=== PATIENT | female | born 1975 | race Caucasian/White ===

== ENCOUNTER 2018-08-12 16:33 | Emergency (ER) | payer OTHER ==
--- NOTE | 2018-08-12 18:04 | EDPHY ---
H & P Stated Complaint: itchy /irritated r eye has been seen by pc and opthalmologist Time Seen by Provider: 08/12/18 18:02 HPI/ROS: HPI: This is a 43-year-old female who presents with Chief Complaint: itchy /irritated r eye has been seen by pc and opthalmologist Location: Behind right eye Quality: Pain Duration: 2 days Signs and Symptoms: no fever, no nausea, no vomiting, no photophobia, no noise sensitivity, no neck stiffness, no ear pain, no tinnitus, no nasal congestion, no sinus pressure, no weakness, no radiation, no aura Timing: Acute Severity: Moderate Context: Patient presents with complaints of right eye posterior discomfort and accompanied by nausea. Patient was seen by the [facility] 2 days ago and started on Fioricet without improvement in her symptoms. 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 Denies any prior history of migraine headaches but does report that she has been having more headaches over the last several months than usual. Modifying Factors: Fioricet, no improved Comment: ROS: A comprehensive 10 system review of systems is otherwise negative aside from elements mentioned in the history of present illness. MEDICAL/SURGICAL/SOCIAL HISTORY: Medical history: Generally healthy. Does not take any regular medications. Surgical history: Denies Social history: Family history noncontributory. General appearance: Extremely well-appearing female, awake and alert, cooperative, Visual Acuity: noted from Nurse's notes. HEENT: Atraumatic and normocephalic, PERRL, EOMI. Nares patent; no rhinorrhea; no nasal mucosal edema. Tympanic membranes clear. Oropharynx clear, no exudate and moist pink mucosa. Airway patent. No lymphadenopathy. No meningismus. Cardiovascular: Normal S1/S2, regular rate, regular rhythm, without murmur rub or gallop. PULMONARY/CHEST: Symmetrical and nontender. Clear to auscultation bilaterally. Good air movement. No accessory muscle usage. ABDOMEN: Soft, nondistended, nontender, no rebound, no guarding, no peritoneal signs, no masses or organomegaly. No CVAT. EXTREMITIES: 2/2 pulses, strength 5/5, no deformities, no clubbing, no cyanosis or edema. NEUROLOGICAL: no focal neuro deficits. GCS 15. Normal cerebellar testing. SKIN: Warm and dry, no erythema. no rash. Good capillary refill. Source: Patient Exam Limitations: No limitations - Personal History LMP (Females 10-55): 15-21 Days Ago Current Tetanus Diphtheria and Acellular Pertussis (TDAP): Yes - Medical/Surgical History Hx Asthma: No Hx Chronic Respiratory Disease: No Hx Diabetes: No Hx Cardiac Disease: No Hx Renal Disease: No Hx Cirrhosis: No Hx Alcoholism: No Hx HIV/AIDS: No Hx Splenectomy or Spleen Trauma: No Other PMH: denies - Social History Smoking Status: Never smoked Constitutional: Initial Vital Signs Temperature (C) 36.8 C 08/12/18 16:44 Heart Rate 56 L 08/12/18 16:44 Respiratory Rate 17 08/12/18 16:44 Blood Pressure 97/72 L 08/12/18 16:44 O2 Sat (%) 99 08/12/18 16:44 O2 Delivery Mode Room Air Allergies/Adverse Reactions: No Known Allergies Allergy (Verified 08/12/18 16:43) Home Medications: Medication Instructions Recorded Promethazine HCl [Phenergan 25mg 25 mg PO Q6 PRN #12 tab 08/12/18 (*)] SUMAtriptan [Imitrex 50 MG (*)] 50 mg PO Q2H #12 tab 08/12/18 Medical Decision Making - Diagnostics Imaging Results: Imaging Impressions Head CT 08/12/18 18:19 Impression: Normal noncontrast CT of the brain. Results called to. Katerina Bentley PA-C, 6:30 PM at the time of the interpretation. ED Course/Re-evaluation: Vital signs reviewed and stable upon arrival. No systemic signs. Called by radiologist who advised that head CT scan shows no acute intracranial process, no sinusitis. This appears to be an ocular migraine and will be treated with IV fluids 1 L normal saline, IV Decadron, IV Toradol, IV Reglan, IV Benadryl 1925: Reassessed patient who reports 50% relief of symptoms. Patient will be given a prescription for Imitrex and promethazine with follow-up at the clinic. This patient was seen under the supervision of my secondary supervising physician. I evaluated care for this patient independently. Discussed this patient with Dr. Gonzalez. Differential Diagnosis: Headache including but not limited to subarachnoid hemorrhage, migraine headache , tension headache and infectious causes such as meningitis, pharyngitis and sinusitis. - Data Points Medications Given: Discontinued Medications Dexamethasone (Decadron Injection) 10 mg IVP EDNOW ONE Stop: 08/12/18 18:19 Last Admin: 08/12/18 18:36 Dose: 10 mg Diphenhydramine HCl (Benadryl Injection) 25 mg IVP EDNOW ONE Stop: 08/12/18 18:19 Last Admin: 08/12/18 18:39 Dose: 25 mg Sodium Chloride (Ns) 1,000 mls @ 0 mls/hr IV ONCE ONE; Wide Open PRN Reason: Protocol Stop: 08/12/18 18:19 Last Admin: 08/12/18 18:35 Dose: 1,000 mls Ketorolac Tromethamine (Toradol) 30 mg IVP EDNOW ONE Stop: 08/12/18 18:19 Last Admin: 08/12/18 18:38 Dose: 30 mg Metoclopramide HCl (Reglan Injection) 10 mg IVP EDNOW ONE Stop: 08/12/18 18:19 Last Admin: 08/12/18 18:37 Dose: 10 mg Departure - Departure Disposition: Home, Routine, Self-Care Clinical Impression: Ocular migraine Condition: Good Instructions: Ocular Migraine (ED) Additional Instructions: Consume a minimum of 8-10 glasses of water or electrolyte fluid replacement drinks that include Gatorade, Powerade, Pedialyte. Rest as much as possible until you are feeling better. Avoid moderate physical activity and sunlight until headache resolved. Eat a bland diet for the next 48 hours and then slowly advance as tolerated. Take promethazine 1 tab every 6 hours as needed for nausea, vomiting. Take Imitrex every 2 hr as needed for headache. Return to the ER immediately if you have progressive headaches, neurologic deficits, gait abnormality, visual disturbance, slurred speech, or any other symptom that concerns you. Referrals: [facility],. [Clinic] - 5-7 days, if not improved Stand Alone Forms: Work Excuse Prescriptions: Promethazine HCl [Phenergan 25mg (*)] 25 mg PO Q6 PRN #12 tab PRN Reason: Nausea/Vomiting, Use 1st SUMAtriptan [Imitrex 50 MG (*)] 50 mg PO Q2H #12 tab
[2018-08-12] MEDS ORDERED: METOCLOPRAMIDE 10 MG/2 ML VIAL IVP ONE (18:18)
[2018-08-12] MEDS ORDERED: DEXAMETHASONE 10 MG/ML VIAL IVP ONE (18:18)
[2018-08-12] MEDS ORDERED: KETOROLAC 30 MG/1 ML SDV IVP ONE (18:18)
[2018-08-12] MEDS ORDERED: NS 1,000 ML IV ONE (18:18)
[2018-08-12 19:39] VITALS: BP 122/80
== END 2018-08-12 19:35 | disposition home or self-care (01) ==
DX: G43.109 Migraine with aura, not intractable, without status migrainosus (principal)
CPT/HCPCS: 96374; J1100; J1200; J1885; J2765